=== PATIENT | female | born 1990 | race Caucasian/White ===

== ENCOUNTER 2018-07-13 15:02 | Inpatient (IN) | payer MEDICAID, SELFPAY ==
[~2018-07-13] VITALS: Ht 160 cm; Wt 84.8 kg
[~2018-07-13 15:02] MED LIST: LIDOCAINE PF 1% 30ML(POUR BTL) INJ ONE; MINERAL OIL 30 ML UDC PO ONE
[2018-07-13] MEDS ORDERED: LR 1,000 ML IV ONE (20:21)
[2018-07-13] MEDS ORDERED: OXYTOCIN/0.9 % SODIUM CHLORIDE 1,000 ML IV SCH (20:21)
[2018-07-13] MEDS ORDERED: AMPICILLIN SODIUM 2 GM in NS 100 ML IV ONE (20:30)
[2018-07-13] MEDS ORDERED: TERBUTALINE SULFATE 1 MG/ML VIAL SUBCUT ONE (20:30)
[2018-07-13] MEDS ORDERED: NALBUPHINE HCL 10 MG/ML AMP IVP PRN (20:30)
[2018-07-13 20:45] VITALS: BP_SYST 124
[2018-07-13] MEDS ORDERED: DINOPROSTONE 10 MG SUPP VG ONE (20:45)
[2018-07-13] MEDS ORDERED: AMPICILLIN SODIUM 2 GM VIAL ONE (20:47)
[2018-07-13 20:57] LABS: BASOPHILS # (AUTO) 0.1 K/uL (0.0-0.2); BASOPHILS % (AUTO) 0.6 % (0.0-2.0); EOSINOPHILS # (AUTO) 0.1 K/uL (0.0-0.4); EOSINOPHILS % (AUTO) 0.9 % (0.0-4.0); HEMATOCRIT 35.2 % (36-48); HEMOGLOBIN 11.4 g/dL (12.0-16.0); LYMPHOCYTES # (AUTO) 1.9 K/uL (1.0-5.5); LYMPHOCYTES % (AUTO) 19.9 % (20.5-51.5); MEAN CORPUSCULAR HEMOGLOBIN 28 pg (27-31); MEAN CORPUSCULAR HGB CONC 32 % (32-36); MEAN CORPUSCULAR VOLUME 87 fL (79.0-98.0); MONOCYTES # (AUTO) 0.5 K/uL (0.0-1.0); MONOCYTES % (AUTO) 5.7 % (1.7-9.3); NEUTROPHILS # (AUTO) 6.8 K/uL (1.8-7.7); NEUTROPHILS % (AUTO) 72.9 % (40.0-70.0); PLATELET COUNT (AUTO) 265 K/uL (130-430); RED BLOOD CELL COUNT(AUTO) 4.06 MIL/uL (4.2-6.2); RED CELL DISTRIBUTION WIDTH 13.7 % (9.0-15.0); WHITE BLOOD COUNT (AUTO) 9.4 K/uL (4.8-10.8)
[2018-07-13] MEDS: LR 1,000 ML IV SCH (21:08)
[2018-07-14] MEDS: AMPICILLIN SODIUM 1 GM in NS 50 ML IV SCH ×5 (01:25→17:01)
[2018-07-14] MEDS ORDERED: AMPICILLIN SODIUM 1 GM VIAL ONE ×3 (01:30→09:19)
[2018-07-14] MEDS ORDERED: fentaNYL CITRATE/PF 100 MCG/2 ML AMP ONE ×2 (07:09→17:28)
[2018-07-14] MEDS ORDERED: ROPIVACAINE 0.2% 100 ML ONE ×2 (07:10→13:17)
[2018-07-14] MEDS ORDERED: LR 500 ML IV ONE (07:44)
[2018-07-14] MEDS ORDERED: FENT2mCg/mL-ROPIVA0.2%/NS EPID 150 ML EP SCH (07:45)
[2018-07-14] MEDS: LR 1,000 ML IV SCH (11:10)
[2018-07-14] MEDS ORDERED: OXYTOCIN/0.9 % SODIUM CHLORIDE 1,000 ML IV ONE (19:44)
[2018-07-14] MEDS ORDERED: LANOLIN 7 GM OINT. TP PRN (19:45)
[2018-07-14] MEDS ORDERED: DERMOPLAST SPRAY TP PRN (19:45)
[2018-07-14] MEDS ORDERED: DIPH-TET-PERTUS Vaccine 0.5 ML VIAL (ADACEL) I.M. PRN (19:45)
[2018-07-14] MEDS ORDERED: WITCH HAZEL LEAF 1 MED.PAD MED.PAD TP PRN (19:45)
[2018-07-14] MEDS ORDERED: OXYCODONE/ACETAMINOPHEN 5-325 TABLET PO PRN ×2 (20:00)
[2018-07-15] MEDS: IBUPROFEN 600 MG TABLET PO SCH ×4 (00:27→18:00)
[2018-07-15 07:00] LABS: HEMATOCRIT 27.3 % (36-48); HEMOGLOBIN 9.1 g/dL (12.0-16.0)
== END 2018-07-15 19:05 | disposition home or self-care (01) | DRG 560 ==
LOC: SPU 20:00
PROVIDERS: ADMIT Obstetrics & Gynecology; ATTEND Obstetrics & Gynecology
PROC: 10E0XZZ Delivery of Products of Conception, External Approach (ICD-10-PCS; principal; 2018-07-14)
PROC: 3E0P7VZ Introduction of Hormone into Female Reproductive, Via Natural or Artificial Opening (ICD-10-PCS; 2018-07-14)
PROC: 3E0R3BZ Introduction of Anesthetic Agent into Spinal Canal, Percutaneous Approach (ICD-10-PCS; 2018-07-14)
PROC: 00HU33Z Insertion of Infusion Device into Spinal Canal, Percutaneous Approach (ICD-10-PCS; 2018-07-14)
DX: O99.824 Streptococcus B carrier state complicating childbirth (principal); Z37.0 Single live birth; Z3A.39 39 weeks gestation of pregnancy
CPT/HCPCS: 36415; 81002-TC; 85018-TC; 85025; 86592; 86886; 86900; 86901; J0290; J2001; J2590; J2795; J3010; J7120